=== PATIENT | female | born 1945 | race Two or more races ===

== ENCOUNTER 2018-02-14 13:06 | Outpatient (CLI) | payer OTHER | END 2018-02-14 13:16 | disposition home or self-care (01) | LOC: SONOGRAMA 13:06 | DX: N63.42 Unspecified lump in left breast, subareolar (principal); N60.11 Diffuse cystic mastopathy of right breast; N60.12 Diffuse cystic mastopathy of left breast ==

== ENCOUNTER 2019-04-20 11:42 | Outpatient (CLI) | payer OTHER | END 2019-04-20 12:03 | disposition home or self-care (01) | LOC: MAMO-SONO 11:42 | DX: N60.11 Diffuse cystic mastopathy of right breast (principal); N60.12 Diffuse cystic mastopathy of left breast; N63.42 Unspecified lump in left breast, subareolar ==

== ENCOUNTER 2019-05-12 11:23 | Outpatient (CLI) | payer OTHER | END 2019-05-12 14:30 | disposition home or self-care (01) | LOC: RAD 11:23 | DX: M25.512 Pain in left shoulder (principal); M54.2 Cervicalgia ==

== ENCOUNTER → 2019-05-19 | Outpatient (CLI) | payer OTHER | END | disposition home or self-care (01) | LOC: RAD 07:37 | DX: R07.89 Other chest pain (principal) ==

== ENCOUNTER 2019-10-09 12:05 | Emergency (ER) | payer OTHER ==
[~2019-10-09] VITALS: Ht 160 cm; Wt 72.6 kg
[2019-10-09] MEDS ORDERED: RAYOS5 MG PO (12:21)
[2019-10-09] MEDS ORDERED: NORVASC2.5 M1 PO (12:22)
[2019-10-09] MEDS ORDERED: PRAVASTATIN SOD20 MG PO (12:22)
[2019-10-09] MEDS ORDERED: ASPIR 8181 MG PO (12:22)
[2019-10-09] MEDS ORDERED: RELAFEN DS1000 MG PO (12:23)
== END 2019-10-09 20:41 | disposition home or self-care (01) ==
LOC: ER 12:05
DX: K29.60 Other gastritis without bleeding (principal)

== ENCOUNTER 2021-05-05 10:22 | Outpatient (CLI) | payer OTHER ==
[~2021-05-05 10:22] MED LIST: ASPIR 8181 MG PO; NORVASC2.5 M1 PO; PRAVASTATIN SOD20 MG PO; RAYOS5 MG PO; RELAFEN DS1000 MG PO
== END 2021-05-05 10:40 | disposition home or self-care (01) ==
LOC: SONOGRAMA 10:22
PROVIDERS: ATTEND Surgery
DX: D24.2 Benign neoplasm of left breast (principal); N60.11 Diffuse cystic mastopathy of right breast; N60.12 Diffuse cystic mastopathy of left breast; R92.0 Mammographic microcalcification found on diagnostic imaging of breast

== ENCOUNTER 2022-12-27 10:10 | Outpatient (CLI) | payer OTHER | END 2022-12-27 10:14 | disposition home or self-care (01) | LOC: RAD 10:10 | PROVIDERS: ATTEND Orthopaedic Surgery | DX: M25.562 Pain in left knee (principal); S83.201A Bucket-handle tear of unspecified meniscus, current injury, left knee, initial encounter; M25.561 Pain in right knee | CPT/HCPCS: 73721 ==

== ENCOUNTER 2023-08-23 14:10 | Emergency (ER) | payer OTHER ==
[~2023-08-23] VITALS: Ht 160 cm; Wt 68.9 kg
== END 2023-08-23 18:55 | disposition home or self-care (01) ==
LOC: ER 14:11
DX: R60.0 Localized edema (principal); I83.213 Varicose veins of right lower extremity with both ulcer of ankle and inflammation; Z88.2 Allergy status to sulfonamides; Z88.8 Allergy status to other drugs, medicaments and biological substances; J44.9 Chronic obstructive pulmonary disease, unspecified; I10 Essential (primary) hypertension; M32.8 Other forms of systemic lupus erythematosus; M25.471 Effusion, right ankle